=== PATIENT | male | born 1965 | race Caucasian/White ===

== ENCOUNTER 2017-09-06 16:03 | Emergency (ER) ==
[2017-09-06 16:10] VITALS: TEMP 96.8; BMI 31.0
--- NOTE | 2017-09-06 16:19 | ED.PDOC ---
General ED Provider: Dr. MANDA CASTRO Chief Complaint: Dizziness Stated Complaint: Patient is a 51 year old who comes to the ER with dizziness for the past week. He also feels palpitations. Blood pressure was noted to be 85 /52. Has been on a weight loss program Time Seen by Physician: 16:17 Mode of Arrival: Walk-In Information Source: Patient Exam Limitations: No limitations Primary Care Provider: TEO MENDOZA Nursing and Triage Documentation Reviewed and Agree: Yes Does patient meet sepsis criteria?: No System Inflammatory Response Syndrome: Not Applicable Sepsis Protocol: For patient's 13 years and over: Temp is 96.8 and below OR 101 and greater Pulse >90 BPM Resp >20/minute Acutely Altered Mental Status Are patient's symptoms suggestive of a new infection, such as: -Pneumonia -Skin, Soft Tissue -Endocarditis -UTI -Bone, Joint Infection -Implantable Device -Acute Abdominal Infection -Wound Infection -Meningitis -Blood Stream Catheter Infection -Unknown Review of Systems - Review Of Systems Constitutional: Reports: Weakness, Loss of appetite Eyes: Reports: No symptoms Ears, Nose, Mouth, Throat: Reports: No symptoms GI: Reports: Poor appetite, Poor fluid intake Neurological: Reports: Weakness All Other Systems: Reviewed and Negative Past Medical History - Past Medical History Previously Healthy: Yes Endocrine: Reports: DM 2, Dyslipidemia Cardiovascular: Reports: None Respiratory: Reports: None Hematological: Reports: None Gastrointestinal: Reports: None Genitourinary: Reports: CKD Neuro/Psych: Reports: None Musculoskeletal: Reports: Gout Cancer: Reports: None Other Pertinent Past Medical History: Ashbergers - Surgical History General Surgical History: Reports: None - Family History Family History: Reports: Unknown - Social History Smoking Status: Never smoker Hx Substance Use: No Alcohol Screening: None Physical Exam - Physical Exam Appearance: Ill-appearing Ill-appearing: Moderate Neck: Supple Respiratory: Airway patent, Breath sounds clear, Breath sounds equal, Respirations nonlabored Cardiovascular: RRR, Pulses normal, No rub, No murmur GI/: Soft, Nontender, No masses, Bowel sounds normal, No Organomegaly Skin: Warm, Dry Neurological: Sensation intact, Alert, Oriented Psychiatric: Depressed Re-Evaluation - Re-Evaluation Time of Re-Evaluation: 18:27 Status: Improved Physician Notification - Case Discussed Physician Notified: Dr Mendoza Time of Notification: 17:30 Critical Care Note - Critical Care Note Total Time (mins): 35 Course - Course Hematology/Chemistry: 09/06/17 16:28 09/06/17 16:28 Orders, Labs, Meds: Lab Review 09/06/17 09/06/17 09/06/17 16:28 16:28 17:15 WBC 8.87 RBC 4.18 L Hgb 12.0 L Hct 36.8 L MCV 88.0 MCH 28.7 MCHC 32.6 RDW Coeff of [place] 14.2 Plt Count 172 Immature Gran % (Auto) 0.3 Neut % (Auto) 66.5 Lymph % (Auto) 26.4 [place] % (Auto) 4.2 Eos % (Auto) 2.1 Baso % (Auto) 0.5 Immature Gran # (Auto) 0.0 Neut # (Auto) 5.9 Lymph # (Auto) 2.3 Robeson # (Auto) 0.4 Eos # (Auto) 0.2 Baso # (Auto) 0.0 Puncture Site R rad O2 Saturation 94.0 L ABG pH 7.346 L ABG pCO2 32.8 L ABG pO2 74.0 L ABG HCO3 18 L ABG Total CO2 19 L ABG Base Excess -8 L Herber[place] Test + O2 Delivery Device Ra FiO2 % 21.0 Sodium 133 L Potassium 5.9 H Chloride 101 Carbon Dioxide 19 L Anion Gap 18.9 BUN 107 H* Creatinine 7.41 H* Estimated GFR (MDRD) 8.00 BUN/Creatinine Ratio 14.43 Glucose 116 H Calcium 10.4 H Total Bilirubin 0.7 AST 12 L ALT 16 Alkaline Phosphatase 92 Total Creatine Kinase 95 Troponin I 0.0110 Total Protein 7.7 Albumin 4.0 Globulin 3.7 Albumin/Globulin Ratio 1.08 Urine Color Urine Clarity Urine pH Ur Specific [place] Urine Protein Urine Glucose (UA) Urine Ketones Urine Blood Urine Nitrite Urine Bilirubin Urine Urobilinogen Ur Leukocyte Esterase 09/06/17 18:16 WBC RBC Hgb Hct MCV MCH MCHC RDW Coeff of [place] Plt Count Immature Gran % (Auto) Neut % (Auto) Lymph % (Auto) Robeson % (Auto) Eos % (Auto) Baso % (Auto) Immature Gran # (Auto) Neut # (Auto) Lymph # (Auto) Robeson # (Auto) Eos # (Auto) Baso # (Auto) Puncture Site O2 Saturation ABG pH ABG pCO2 ABG pO2 ABG HCO3 ABG Total CO2 ABG Base Excess Her[place]th Test O2 Delivery Device FiO2 % Sodium Potassium Chloride Carbon Dioxide Anion Gap BUN Creatinine Estimated GFR (MDRD) BUN/Creatinine Ratio Glucose Calcium Total Bilirubin AST ALT Alkaline Phosphatase Total Creatine Kinase Troponin I Total Protein Albumin Globulin Albumin/Globulin Ratio Urine Color Yellow Urine Clarity Clear Urine pH 5.0 Ur Specific [place] 1.010 Urine Protein Negative Urine Glucose (UA) Negative Urine Ketones Negative Urine Blood Negative Urine Nitrite Negative Urine Bilirubin Negative Urine Urobilinogen 0.2 Ur Leukocyte Esterase Negative Orders Category Date Time Status ABG DRAW REQUEST Routine CARDIO 09/06/17 17:15 Completed EKG-(ED ONLY) Stat CARDIO 09/06/17 16:14 Completed ED IV/MEDIPORT/POWERPORT .ONCE EMERGENCY 09/06/17 17:13 Active Orthostatic [ED ORTHOSTATIC VITAL SIGNS] .ONCE EMERGENCY 09/06/17 16:16 Active ABG Stat LAB 09/06/17 17:15 Completed CBC W/ AUTO DIFF Stat LAB 09/06/17 16:28 Completed COMPREHENSIVE METABOLIC PANEL Stat LAB 09/06/17 16:28 Completed CREATINE KINASE Stat LAB 09/06/17 16:28 Completed TROPONIN I Stat LAB 09/06/17 16:28 Completed URINALYSIS C & S IF INDICATED Stat LAB 09/06/17 18:16 Completed 0.9 % Sodium Chloride [Saline Flush] MEDS 09/06/17 17:13 Discontinued 1 syr IVF PRN PRN Sodium Chloride 0.9% [Sodium Chloride] 1,000 ml MEDS 09/06/17 17:13 Discontinued IV 125 mls/hr CHEST, 1V AP ONLY Stat RADS 09/06/17 16:14 Completed Medications Discontinued Medications Generic Name Dose Route Start Last Admin Trade Name Freq PRN Reason Stop Dose Admin Sodium Chloride 1,000 mls @ 125 mls/hr 09/06/17 17:13 09/06/17 17:44 Sodium Chloride IV 09/07/17 01:12 125 mls/hr .Q8H STA Administration Sodium Chloride 1 syr 09/06/17 17:13 Saline Flush IVF PRN PRN To flush IV Vital Signs: Temp Pulse Resp BP Pulse Ox 09/06/17 17:33 84 113/76 09/06/17 17:32 78 121/71 09/06/17 16:05 96.8 F L 82 20 120/77 97 ASTER Risk Score ASTER Risk Score: Risk Score Odds of by 30D 0 0.1 (0.1-0.2) 1 0.3 (0.2-0.3) 2 0.4 (0.3-0.5) 3 0.7 (0.6-0.9) 4 1.2 (1.0-1.5) 5 2.2 (1.9-2.6) 6 3.0 (2.5-3.6) 7 4.8 (3.8-6.1) Departure - Departure Time of Disposition: 18:26 Disposition: TSF SHORT-TRM HOSP Discharge Problem: Hyperkalemia, Metabolic acidosis [id number] renal failure Qualifiers: Acute renal failure type: unspecified Chronic kidney disease stage: stage 5, not on chronic dialysis Qualified Code(s): N17.9 - Acute kidney failure, unspecified Condition: Stable Pt referred to PMD for follow-up: No IPMP verified?: No Allergies/Adverse Reactions: Allergies No Known Allergies Allergy (Verified 09/06/17 16:08) Home Medications: Ambulatory Orders Atorvastatin Calcium 40 mg PO BEDTIME 12/28/13 Lisinopril 20 mg pe PO DAILY 12/28/13 Sitagliptin Phosphate [Januvia] 1 each PO BEDTIME 03/05/16 Allopurinol 100 mg PO DAILY 09/06/17 Cholecalciferol (Vitamin D3) [Vitamin D] 50,000 unit PO MONTHLY 09/06/17 Sodium Bicarbonate 650 mg PO Q12H 09/06/17 Pt. Stabilized Within Hospital's Capabilities/Transferred To: [facility] Disposition Discussed With: Patient, Family
[2017-09-06] MEDS ORDERED: SODIUM CHLORIDE 1,000 ML IV STA (17:13)
[2017-09-06 17:33] VITALS: BP 120/69
--- NOTE | 2017-09-06 17:43 | DI ---
Exam: Single view of the chest. Comparison: None available. Reason for exam: Chest pain. FINDINGS: No pneumothorax, pleural effusion, or focal consolidation. The cardiac silhouette is not enlarged. The imaged osseous structures appear grossly unremarkable without acute fracture. Impression: No acute cardiopulmonary process.
== END 2017-09-06 18:19 | disposition short-term general hospital (02) ==
LOC: ED 16:03
DX: N17.9 Acute kidney failure, unspecified (principal); E87.5 Hyperkalemia; E87.2 Acidosis; N18.9 Chronic kidney disease, unspecified; R42 Dizziness and giddiness; R00.2 Palpitations; R53.1 Weakness; E11.9 Type 2 diabetes mellitus without complications; E78.5 Hyperlipidemia, unspecified; Z79.899 Other long term (current) drug therapy
CPT/HCPCS: 36415; 80053; 81001; 82550; 82803; 84484; 85025; 93005; 93010; 96360; 99285